=== PATIENT | female | born 1985 | race Caucasian/White ===

== ENCOUNTER 2023-01-24 16:14 | Outpatient (CLI) | payer OTHER, SELFPAY ==
[2023-01-24 20:10] LABS: Chlamydia DNA Amplified* NOT DETECTED (No Detected); GC DNA Amplified* NOT DETECTED (No Detected)
== END 2023-01-24 16:15 | disposition home or self-care (01) ==
PROVIDERS: Visit Provider Registered Nurse
DX: Z01.419 Encounter for gynecological examination (general) (routine) without abnormal findings (principal); R53.83 Other fatigue; Z13.6 Encounter for screening for cardiovascular disorders; Z13.1 Encounter for screening for diabetes mellitus; Z11.3 Encounter for screening for infections with a predominantly sexual mode of transmission
CPT/HCPCS: 80061; 82728; 82947; 84443; 87491; 87591